=== PATIENT | female | born 1995 | race Caucasian/White ===

== ENCOUNTER 2017-12-11 14:13 | Observation (INO) | payer MEDICAID ==
--- NOTE | 2017-12-11 19:50 | PDGENHP ---
History and Physical History and Physical: HPI: Patient is a 22 yo G 1 P 0 at 28.6 wks EGA that presents to L&D with complaints of generalized abd pain that started around 9 pm this am. She also noted a small amt of blood on the tissue when she wiped after voiding when she woke up today. She describes the pain as mild. Denies change in vaginal discharge, odor, irritation, itching. She has not had intercourse for that last two weeks. States baby is active, denies LOF or urinary frequency, urgency or pain. EDC: 02/13/18 which is based on LMP: 05/09/2017. She has been receiving PNC at [facility] in [place] since 14 weeks but is transferring care to [facility]. She has her first appt this Sunday. She states she doesn't do a great job staying hydrated Her is uncomplicated. Review of Systems: Constitutional: Denies any fever, chills, or fatigue HEENT: denies any visual changes, difficulty swallowing, hearing loss Cardiovascular: Denies any chest pain, palpitations, leg swelling Respiratory: denies any cough, wheezing, or shortness of breathe GI: Denies any nausea, vomiting, diarrhea, constipation : denies any dysuria, urgency, frequency Musculoskeletal: denies any muscle or bone pain Skin: denies any rashes Neuro: denies any headache, seizures, lightheadedness, dizziness, or loss of consciousness Psychiatric: denies any depression, anxiety, or SI/HI thoughts HISTORY: Previous OB history: none Past medical history: non contributory Past surgical history: none Medications: PNV Allergies (list reaction): NKDA LABS: Rh: A pos ABS: Neg Rubella: Immune HbsAg: NR HIV: NR VDRL: NR GC: Neg Chlamydia: Neg PHYSICAL EXAM: Constitutional: WN, A&Ox3 HEENT: normocephalic atraumatic, supple Heart: RRR, no murmur Chest: CTA-B Abdomen: Soft, nontender, gravid Spec exam: FFN/GC-CHLAM obtained - no abnormal discharge noted, no bleeding noted SVE: cl/25/high Extremities: neg edema, negative josee's sign Neuro: grossly normal Psych: normal affect assessment: Reassuring FHTs, baseline 140 +accels,10/10- no decels, moderate variability Contractions: toco: quiet Assessment: 1) 22 yo G 1 P 0 with IUP@ 28.6 weeks EGA 2) Abd pain/cramping - no cervical change 3) FFN neg 4) Cat 1 FHR tracing 5) UA +lueks/+WBC Plan: 1) UTI - will treat with macrobid and send urine for culture to confirm 2) PTL precautions reviewed with patient - encourage good hydration 3) [facility]U [facility]
== END 2017-12-11 20:30 | disposition home or self-care (01) ==
LOC: FLD 14:13
PROVIDERS: ADMIT Advanced Practice Midwife; ATTEND Advanced Practice Midwife
DX: R10.84 Generalized abdominal pain (principal); Z3A.28 28 weeks gestation of pregnancy